=== PATIENT | female | born 1980 | race Caucasian/White ===

== ENCOUNTER 2018-07-13 14:09 | Outpatient (REF) | payer BC, SELFPAY ==
[2018-07-13 21:25] LABS: Abs Immature Grans 0.02 k/cumm (0.0-0.09); Absolute Basophil Count 0.02 k/cumm (0.0-0.2); Absolute Eosinophil Count 0.05 k/cumm (0.0-0.7); Absolute Lymphocyte Count 0.66 k/cumm (1.2-3.4); Basophils % 0.5; Eosinophils % 1.3; HCT 42.6 % (36.0-46.0); HGB 13.7 g/dL (12.0-15.5); Immature Grans % 0.5; Lymphocytes % 17.6; Mean Corp. HGB Concentration 32.2 g/dL (32.0-36.0); Mean Corpuscular Hemoglobin 28.8 pg (27.0-33.0); Mean Corpuscular Volume 89.5 fL (80-95); Mean Platelet Volume 11.5 fL (8.0-11.0); Monocytes % 5.3; Neutrophils % 74.8; Platelet Count 246 x1000/uL (130-400); RBC 4.76 m/cumm (4.00-5.20); RBC Distribution Width 13.1 % (11.7-14.6); White Blood Cell Count 3.75 k/cumm (4.4-10.8)
[2018-07-13 21:26] LABS: Absolute Neutrophil Count 2.81 k/cumm (1.2-6.7)
[2018-07-13 21:39] LABS: Iron 123 ug/dL (50-175); Total Iron Binding Capacity 339 ug/dL (250-450); Transferrin Sat 36 % (15-50)
[2018-07-13 21:44] LABS: Anion Gap 6.9 mmol/L (3-11); BUN 10 mg/dL (7-18); CO2 28.1 mmol/L (21.0-32.0); CREATININE 0.86 mg/dL (0.55-1.02); Calcium 8.7 mg/dL (8.5-10.1); Chloride 105 mmol/L (98-107); Cholesterol 237 mg/dL (50-200); Ferritin 41 ng/mL (8-388); Glucose 78 mg/dL (70-100); HDL Cholesterol 53 mg/dL (40-60); LDL CHOLESTEROL 171 mg/dL (<100); Sodium 140 mmol/L (136-145); TSH (W/Ref FT4) 1.17 uIU/mL (0.358-3.74); Triglyceride 90 mg/dL (30-150)
== END 2018-07-13 14:29 ==
LOC: NCHCN 14:09
PROVIDERS: PCP Nurse Practitioner Family; Visit Provider Nurse Practitioner Family
DX: R21 Rash and other nonspecific skin eruption (principal); M53.3 Sacrococcygeal disorders, not elsewhere classified; R53.83 Other fatigue; H53.9 Unspecified visual disturbance; R51 Headache; I86.8 Varicose veins of other specified sites; Z00.00 Encounter for general adult medical examination without abnormal findings; J30.9 Allergic rhinitis, unspecified
CPT/HCPCS: 80048; 80061; 83721; 82728; 83540; 83550; 84443; 85025

== ENCOUNTER 2019-08-03 11:24 | Outpatient (REF) | payer BC, SELFPAY ==
--- NOTE | 2019-08-03 10:00 | PAPFT_PTH ---
PAT[facility]: [facility]errero [id number]GE/SX: 39/F ROOM: RE08/03/[address]: Ivonne Baca : 1980 BED: DIS: 08/03/2019 SPEC #: [id number] RECD: 08/04/19 12:59 STATUS: ARYA REFátima #: [id number] CHUCKIE: 08/03/19 10:[address]: Ivonne Baca DEPT: [facility] Cytology RECD BY: Hermelinda Interiano Tissues: 1 - CX/ENDOCX FOR PAP SMEARS Procedures: PAP THIN PREP/UVM Screening HPV DNA PROBE Comments: [id number]
== END 2019-08-03 11:44 ==
LOC: NCHCN 11:24
PROVIDERS: PCP Nurse Practitioner Family; Visit Provider Nurse Practitioner Family
DX: Z00.00 Encounter for general adult medical examination without abnormal findings (principal); Z12.4 Encounter for screening for malignant neoplasm of cervix; Z01.419 Encounter for gynecological examination (general) (routine) without abnormal findings; Z11.51 Encounter for screening for human papillomavirus (HPV)
CPT/HCPCS: 88142; 87624

== ENCOUNTER 2019-11-16 12:10 | Outpatient (REF) | payer BC, SELFPAY ==
[2019-11-16 15:33] LABS: HCG Quant, Pregnancy 5705 mIU/mL (1-3)
== END 2019-11-16 12:30 ==
LOC: NCHCN 12:10
PROVIDERS: PCP Nurse Practitioner Family; Visit Provider Nurse Practitioner Family
DX: Z33.1 Pregnant state, incidental (principal)
CPT/HCPCS: 84702

== ENCOUNTER 2019-12-10 19:39 | Outpatient (REF) | payer BC, SELFPAY | END 2019-12-10 19:59 | LOC: NCHCN 19:39 | PROVIDERS: PCP Nurse Practitioner Family; Visit Provider Family Medicine | DX: R30.0 Dysuria (principal) | CPT/HCPCS: 87086 ==

== ENCOUNTER 2020-10-12 18:40 | Outpatient (REF) | payer BC, SELFPAY | END 2020-10-12 19:00 | LOC: NCHCN 18:40 | PROVIDERS: PCP Nurse Practitioner Family; Visit Provider Family Medicine | DX: R30.0 Dysuria (principal) | CPT/HCPCS: 87086 ==

== ENCOUNTER 2021-08-14 09:42 | Outpatient (REF) | payer BC, SELFPAY ==
--- NOTE | 2021-08-14 08:40 | PAPFT_PTH ---
PATIENT: Soha Guerrero LOC: [facility]#:[id number] AGE/SX: 41/F ROOM: RE08/14/[address]: Ivonne Baca : 1980 BED: DIS: 08/14/2021 SPEC #: [id number] RECD: 08/14/21 18:28 STATUS: ARYA REFátima #: [id number] CHUCKIE: 08/14/21 08:[address]: Ivonne Baca DEPT: [facility] Cytology RECD BY: Hermelinda Interiano Tissues: 1 - CX/ENDOCX FOR PAP SMEARS Procedures: PAP THIN PREP/UVM Screening HPV DNA PROBE Comments:
[2021-08-14 14:37] LABS: Abs Immature Grans 0.02 10^3/uL (0.0-0.06); Absolute Basophil Count 0.04 10^3/uL (0.0-0.2); Absolute Eosinophil Count 0.06 10^3/uL (0.0-0.7); Absolute Lymphocyte Count 0.73 10^3/uL (1.2-3.4); Absolute Monocyte Count 0.26 10^3/uL (0.1-0.8); Absolute Neutrophil Count 2.95 10^3/uL (1.2-6.7); Eosinophils % 1.5; HCT 45.8 % (36.0-46.0); HGB 14.5 g/dL (11.2-15.7); Immature Grans % 0.5; MCH 28.3 pg (27.0-33.0); MCHC 31.7 % (32.0-36.0); MCV 89.5 fL (80-95); MPV 12.1 fL (8.0-11.0); Monocytes % 6.4; Neutrophils % 72.6; Nucleated RBC 0 %; Platelet Count 247 10^3/uL (130-400); RBC 5.12 10^6/uL (3.93-5.22); RDW 12.5 % (11.7-14.6); RDW-SD 41.2 fL; WBC 4.06 10^3/uL (4.4-10.8)
[2021-08-15 00:10] LABS: Calculated LDL 161 mg/dL (<100); Cholesterol 228 mg/dL (<200); Ferritin 82 ng/mL (8-252); HDL Cholesterol 53 mg/dL (40-60); TSH (W/Ref FT4) 0.89 uIU/mL (0.36-3.74); Triglyceride 73 mg/dL (<150)
[2021-08-15 00:11] LABS: Iron 104 ug/dL (50-170); Total Iron Binding Capacity 297 ug/dL (250-450); Transferrin Sat 35 % (15-50)
[2021-08-15 15:59] LABS: Beta-HCG, Quant, Tumor Marker <0.6 IU/L
[2021-08-16 04:09] LABS: Vitamin D 25 Total 37.3 ng/mL (30-100)
== END 2021-08-14 09:43 | disposition home or self-care (01) ==
LOC: NCHCN 09:42
PROVIDERS: PCP Nurse Practitioner Family; Visit Provider Nurse Practitioner Family
DX: N92.6 Irregular menstruation, unspecified (principal); R53.83 Other fatigue; E55.9 Vitamin D deficiency, unspecified; D72.818 Other decreased white blood cell count; E78.5 Hyperlipidemia, unspecified; Z00.00 Encounter for general adult medical examination without abnormal findings; Z12.4 Encounter for screening for malignant neoplasm of cervix; Z11.51 Encounter for screening for human papillomavirus (HPV)
CPT/HCPCS: 80061; 82306; 88142; 82728; 83540; 83550; 84443; 84702; 85025; 87624

== ENCOUNTER 2021-09-19 14:14 | Outpatient (REF) | payer BC, SELFPAY ==
[2021-09-19 14:46] LABS: Bilirubin Negative (Negative); Blood Trace-intact (Negative); Clarity Clear (Clear); Glucose Negative (Negative); Ketones Negative (Negative); Leukocyte Esterase Negative (Negative); Nitrite Negative (Negative); Urobilinogen 0.2 EU/dL (Up TO 0.2)
[2021-09-19 15:54] LABS: Bacteria Negative HPF (Negative); C & S Indicated? No; Crystals Negative HPF (Negative); Epithelial Cells Rare HPF (Negative); Mucus Negative (Negative); RBC 0-2 HPF (0-2); WBC Negative HPF (0-5)
== END 2021-09-19 14:15 | disposition home or self-care (01) ==
LOC: NCHCN 14:14
PROVIDERS: PCP Nurse Practitioner Family; Visit Provider Family Medicine
DX: N39.0 Urinary tract infection, site not specified
CPT/HCPCS: 81003; 81015

== ENCOUNTER 2023-02-18 12:08 | Outpatient (REF) | payer BC, SELFPAY ==
[2023-02-18 15:26] LABS: Abs Immature Grans 0.02 10^3/uL (0.0-0.06); Absolute Basophil Count 0.04 10^3/uL (0.0-0.2); Absolute Eosinophil Count 0.04 10^3/uL (0.0-0.7); Absolute Lymphocyte Count 0.86 10^3/uL (1.2-3.4); Absolute Monocyte Count 0.17 10^3/uL (0.1-0.8); Absolute Neutrophil Count 2.99 10^3/uL (1.2-6.7); HCT 44.2 % (36.0-46.0); HGB 14.1 g/dL (11.2-15.7); Immature Grans % 0.5; Lymphocytes % 20.9; MCH 28.7 pg (27.0-33.0); MCHC 31.9 % (32.0-36.0); MCV 90 fL (80-95); MPV 11.7 fL (8.0-11.0); Monocytes % 4.1; Neutrophils % 72.5; Platelet Count 233 10^3/uL (130-400); RBC 4.92 10^6/uL (3.93-5.22); RDW 12.8 % (11.7-14.6); RDW-SD 42.2 fL; WBC 4.12 10^3/uL (4.4-10.8)
[2023-02-18 16:09] LABS: ALT 15 U/L (14-59); AST 15 U/L (15-37); Albumin 4.3 g/dL (3.4-5.0); Alkaline Phosphatase 70 U/L (46-116); BUN 9 mg/dL (7-18); Bilirubin, Total 0.4 mg/dL (0.2-1.0); CREATININE 0.8 mg/dL (0.55-1.02); Calcium 8.9 mg/dL (8.5-10.1); Chloride 104 mmol/L (98-107); Glucose 82 mg/dL (74-106); Potassium 4.4 mmol/L (3.5-5.1); Sodium 142 mmol/L (136-145); TSH (W/Ref FT4) 1.72 uIU/mL (0.36-3.74); Total Protein 7.6 g/dL (6.4-8.2)
== END 2023-02-18 12:09 | disposition home or self-care (01) ==
LOC: NCHCN 12:08
PROVIDERS: PCP Nurse Practitioner Family; Visit Provider Family Medicine
DX: F32.89 Other specified depressive episodes (principal); M53.3 Sacrococcygeal disorders, not elsewhere classified; R53.83 Other fatigue
CPT/HCPCS: 80053; 84443; 85025

== ENCOUNTER 2023-11-12 12:47 | Outpatient (REF) | payer BC, SELFPAY ==
--- OUTSIDE RECORDS SUMMARY | 2023-11-12 12:50 | XMS_ITS | Continuity of Care Document ---
Author Name Unknown Organization [facility] Address [address] [place] [id number] Care Team Providers Care Help Desk Operator Name Role Phone BECKY STONE APRN Primary Care Physician Encounter [facility] NBR [id number] Date(s): 02/25/23 - 02/25/[address] [phone]- [place] Discharge Disposition: Home or Self Care Attending Physician: ETIENNE TAYLOR Admitting Physician: ETIENNE TAYLOR Referring Physician: ETIENNE TAYLOR Results Radiology Reports * Exam Date Time Procedure Performing Provider Status 02/25/23 3:54 PM XR Sacrum/Coccyx 2+ Views Hemant Toribio ge; Auth (Verified) Notes: (XR Sacrum/Coccyx 2+ Views) Reason For Exam: COCCYX PAIN XR Sacrum/Coccyx 2+ Views EXAM DESCRIPTION: XR Sacrum/Coccyx 2+ Views 02/25/2023 INDICATION: COCCYX PAIN TECHNIQUE: AP and lateral views of the sacrum and coccyx, three views COMPARISON: AP pelvis examination from 12/28/2020 IMPRESSION: No acute fracture or subluxation. SI joints appear symmetric and pubic symphysis appears intact No focal lytic or sclerotic lesion IUD overlying the mid pelvis. JOB #: [id number] Final Signed by: Papo Cardona MD Signed (Electronic Signature): 02/25/2023 4:04 pm XR Sacrum and Coccyx GE 2 Views * Papo Cardona MD: VERIFY, VERIFY Event Display: Report EXAM DESCRIPTION: XR Sacrum/Coccyx 2+ Views 02/25/2023 INDICATION: COCCYX PAIN TECHNIQUE: AP and lateral views of the sacrum and coccyx, three views COMPARISON: AP pelvis examination from 12/28/2020 IMPRESSION: No acute fracture or subluxation. SI joints appear symmetric and pubic symphysis appears intact No focal lytic or sclerotic lesion IUD overlying the mid pelvis. JOB #: [id number] Final Signed by: Papo Cardona MD Signed (Electronic Signature): 02/25/2023 4:04 pm Patient Care team information Care Team Personnel Name: BECKY STONE APRN Position: No Access Member Role: Primary Care Physician Address: Address: [address] [place] [phone]- Care Team Related Persons Name: KIMBERLY SAN
[2023-11-12 15:57] LABS: Hemoglobin A1C 5.2 % (<5.7)
== END 2023-11-12 12:48 | disposition home or self-care (01) ==
LOC: NCHCN 12:47
PROVIDERS: PCP Nurse Practitioner Family; Visit Provider Nurse Practitioner Family
DX: Z00.00 Encounter for general adult medical examination without abnormal findings (principal)
CPT/HCPCS: 83036

== ENCOUNTER 2024-03-18 07:49 | Emergency (ER) | payer BC, SELFPAY ==
--- NOTE | 2024-03-18 | DI.CT_ITS ---
Exam(s) CT ABDOMEN PELVIS W CLINICAL HISTORY: TECHNIQUE: Imaging Protocol: Axial computed tomography images with coronal and sagittal reformatted images were created and reviewed. CONTRAST MATERIAL: Intravenous: Omnipaque 350 Contrast volume:100 mL Oral: No COMPARISON: No exams were available for comparison FINDINGS: ABDOMEN: Lung Bases: Normal where visualized. Liver: Normal density. No measurable mass. Portal, Superior Mesenteric, and Splenic Veins: Unremarkable. Gallbladder and Biliary Tract: No radiodense calculus or dilation. Pancreas: Normal density, no abnormal calcifications or inflammatory process. Spleen: Normal. Adrenals: No masses seen. Kidneys: Normal size, contour and axis. There is a 3 mm right UVJ stone causing moderate right hydron ephrosis. There are 2 simple right renal cysts. No follow-up is recommended. Abdominal Aorta: Abdominal portion non-dilated. Bowel: No obstruction or bowel wall thickening. No evidence of appendicitis. Peritoneal Cavity: No ascites, collection or mesenteric inflammatory response. No free air. Lymph Nodes: Within normal limits. Bones: Within normal limits for the patient's age. Soft Tissues: Unremarkable. PELVIS: Bladder: Symmetric distention, no gross wall thickening. Reproductive Organs: Unremarkable as visualized. Lymph Nodes: Within normal limits. Bones: Within normal limits for the patient's age. IMPRESSION: 1. 3 mm right UVJ stone causing moderate right hydronephrosis. 2. Findings were discussed with Yolanda Samuel at 9:53 a.m. on 03/18/2024. RADIATION DOSE DELIVERED: Total DLP DATA REPOSITORY: All CT scans at this facility are submitted to the National Radiology Data Registry (NRDR) Dose Index Registry (DIR) with the [employer] (ACR). RADIATION OPTIMIZATION: All CT scans at this facility use at least one of these dose optimization te chniques: automated exposure control; mA and/or kV adjustment per patient size (includes targeted exa ms where dose is matched to clinical indication); or iterative reconstruction.
--- NOTE | 2024-03-18 | DI.US_ITS ---
Exam(s) US PELVIS CLINICAL HISTORY: . TECHNIQUE: Transabdominal and transvaginal pelvic ultrasound was performed using standard protocol. COMPARISON: No exams were available for comparison FINDINGS: The urinary bladder was not prepped for this examination. The uterus and ovaries cannot be visualize d on this examination. There is limited visualization of the pelvic structures. Within the limits o f the examination, no suspicious cystic or solid mass is seen. IMPRESSION: 1. Limited examination was performed. 2. Within the limits of the examination, no suspicious cystic or solid mass is seen. DATA REPOSITORY:
[2024-03-18 08:05] VITALS: BP 160/90; PULSE 89; RESP 14; TEMP 36.4; O2SAT 97
[2024-03-18] MEDS: Ondansetron 4 MG/2 ML VIAL (08:44)
[2024-03-18] MEDS: MORPHine 4 MG/ML SYR (08:44)
[2024-03-18] MEDS: Ketorolac 30 MG/ML VIAL (09:59)
[2024-03-18] MEDS: Tamsulosin 0.4 MG CAPCR PO (10:40)
[2024-03-18] MEDS: Ondansetron O.D.T. 4 MG TABEF, 3 TABS/BTL 12 MG (10:40)
[2024-03-18 10:59] VITALS: BP 145/86; BP 160/90; PULSE 89; RESP 13; RESP 14; TEMP 36.4; O2SAT 97; O2SAT 99
[2024-03-18] MEDS: Normal Saline - Diluent 50 ML VIAL IJ (11:12)
[2024-03-18] MEDS: Omnipaque 350 MG/ML 500 ML BTL-Imaging package IJ (11:13)
[2024-03-18 12:37] LABS: Bilirubin Negative (Negative); Blood Moderate (Negative); Clarity Clear (Clear); Glucose Negative (Negative); Ketones >=160 mg/dL (Negative); Leukocyte Esterase Negative (Negative); Nitrite Negative (Negative); Urobilinogen 0.2 mg/dL (Up to 0.2)
[2024-03-18 12:39] LABS: Bacteria Rare HPF (Negative); C & S Indicated? No/Sq. Contamination; Casts Negative LPF (Negative); Crystals Negative HPF (Negative); Epithelial Cells Many HPF (Negative); Mucus Trace (Negative); RBC 20-50 HPF (0-2); WBC 0-2 HPF (0-5)
[2024-03-18 13:01] LABS: ALT 12 U/L (14-59); AST 12 U/L (15-37); Albumin 4.5 g/dL (3.4-5.0); Alkaline Phosphatase 44 U/L (46-116); Anion Gap 18.9 mmol/L (3-11); BUN 9 mg/dL (7-18); Bilirubin, Total 0.8 mg/dL (0.2-1.0); CO2 17.1 mmol/L (21.0-32.0); CREATININE 1.1 mg/dL (0.55-1.02); Calcium 9.1 mg/dL (8.5-10.1); Chloride 103 mmol/L (98-107); Estimated GFR 63.54 (mL/min/1.73m2); Glucose 118 mg/dL (74-106); Lipase 27 U/L (16-77); Potassium 3.8 mmol/L (3.5-5.1); Sodium 139 mmol/L (136-145); Total Protein 7.5 g/dL (6.4-8.2)
[2024-03-18 13:03] LABS: HCG Qual (Serum) Negative
[2024-03-18 13:04] LABS: Absolute Basophil Count 0.05 10^3/uL (0.0-0.2); Absolute Eosinophil Count 0.15 10^3/uL (0.0-0.7); Absolute Lymphocyte Count 1.35 10^3/uL (1.2-3.4); Absolute Monocyte Count 0.24 10^3/uL (0.1-0.8); Absolute Neutrophil Count 3.09 10^3/uL (1.2-6.7); Eosinophils % 3.1 %; HCT 42.4 % (36.0-46.0); HGB 13.8 g/dL (11.2-15.7); Immature Grans % 0.4 %; Lymphocytes % 27.6 %; MCH 28.9 pg (27.0-33.0); MCHC 32.5 % (32.0-36.0); MCV 89 fL (80-95); MPV 11.5 fL (8.0-11.0); Monocytes % 4.9 %; Platelet Count 231 10^3/uL (130-400); RBC 4.78 10^6/uL (3.93-5.22); RDW-SD 39.6 fL
[2024-03-18 13:05] LABS: Abs Immature Grans 0.02 10^3/uL (0.0-0.06)
== END 2024-03-18 10:59 | disposition home or self-care (01) ==
LOC: ER 11:12
PROVIDERS: Emergency Provider Registered Nurse Emergency; PCP Nurse Practitioner Family
DX: N13.2 Hydronephrosis with renal and ureteral calculous obstruction (principal); R11.10 Vomiting, unspecified
CPT/HCPCS: 36415; 80053; 83690; 96374; 96375; 99285; 74177; 76856; 81003; 81015; 84703; 85025; 99284; J1885; J2270; J2405

== ENCOUNTER 2024-04-06 09:37 | Outpatient (REF) | payer BC, SELFPAY ==
[2024-04-12 16:29] LABS: Source: Passed Stone
== END 2024-04-06 09:38 | disposition home or self-care (01) ==
LOC: LBN 09:37
PROVIDERS: PCP Nurse Practitioner Family; Visit Provider Nurse Practitioner Gerontology
DX: N20.0 Calculus of kidney (principal)
CPT/HCPCS: 82365

== ENCOUNTER 2024-08-24 15:13 | Outpatient (REF) | payer BC, SELFPAY ==
[2024-08-24 14:27] LABS: Abs Immature Grans 0.01 10^3/uL (0.0-0.06); Absolute Basophil Count 0.04 10^3/uL (0.0-0.2); Absolute Eosinophil Count 0.02 10^3/uL (0.0-0.7); Absolute Lymphocyte Count 0.81 10^3/uL (1.2-3.4); Absolute Monocyte Count 0.25 10^3/uL (0.1-0.8); Absolute Neutrophil Count 4.18 10^3/uL (1.2-6.7); Basophils % 0.8 %; Eosinophils % 0.4 %; HCT 42.3 % (36.0-46.0); HGB 13.7 g/dL (11.2-15.7); Immature Grans % 0.2 %; Lymphocytes % 15.3 %; MCH 29.1 pg (27.0-33.0); MCHC 32.4 % (32.0-36.0); MCV 90 fL (80-95); MPV 12.4 fL (8.0-11.0); Monocytes % 4.7 %; Neutrophils % 78.6 %; Platelet Count 223 10^3/uL (130-400); RBC 4.71 10^6/uL (3.93-5.22); RDW 12.7 % (11.7-14.6); RDW-SD 42.4 fL; WBC 5.31 10^3/uL (4.4-10.8)
[2024-08-24 15:26] LABS: ALT 9 U/L (14-59); AST 9 U/L (15-37); Albumin 4.3 g/dL (3.4-5.0); Alkaline Phosphatase 44 U/L (46-116); Anion Gap 10.5 mmol/L (3-11); BUN 9 mg/dL (7-18); Bilirubin, Total 0.68 mg/dL (0.2-1.0); CO2 24.5 mmol/L (21.0-32.0); CREATININE 0.9 mg/dL (0.55-1.02); Calcium 9.3 mg/dL (8.5-10.1); Calculated LDL 137 mg/dL (<100); Chloride 108 mmol/L (98-107); Cholesterol 207 mg/dL (<200); Estimated GFR 80.34 (mL/min/1.73m2); Glucose 74 mg/dL (74-106); HDL Cholesterol 57 mg/dL (40-60); Potassium 4.6 mmol/L (3.5-5.1); Sodium 143 mmol/L (136-145); Total Protein 7.3 g/dL (6.4-8.2); Triglyceride 68 mg/dL (<150); Vitamin D 25 Total 34.1 ng/mL (30-100)
== END 2024-08-24 15:14 | disposition home or self-care (01) ==
LOC: NCHCN 15:13
PROVIDERS: PCP Nurse Practitioner Family; Visit Provider Nurse Practitioner Family
DX: E55.9 Vitamin D deficiency, unspecified (principal); Z00.00 Encounter for general adult medical examination without abnormal findings; E78.5 Hyperlipidemia, unspecified; D72.819 Decreased white blood cell count, unspecified
CPT/HCPCS: 80053; 80061; 82306; 85025

== ENCOUNTER 2025-08-24 15:35 | Outpatient (REF) | payer BC, SELFPAY ==
[2025-08-24 14:37] LABS: Abs Immature Grans 0.02 10^3/uL (0.0-0.06); HCT 43.3 % (36.0-46.0); HGB 14.1 g/dL (11.2-15.7); Immature Grans % 0.4 %; MCH 29.1 pg (27.0-33.0); MCHC 32.6 % (32.0-36.0); MCV 90 fL (80-95); MPV 11.2 fL (8.0-11.0); Platelet Count 211 10^3/uL (130-400); RBC 4.84 10^6/uL (3.93-5.22); RDW 12.1 % (11.7-14.6); RDW-SD 40.2 fL; WBC 5.10 10^3/uL (4.4-10.8)
[2025-08-24 15:08] LABS: TSH (W/Ref FT4) 0.98 uIU/mL (0.55-4.78)
== END 2025-08-24 15:36 | disposition home or self-care (01) ==
LOC: NCHCN 15:35
PROVIDERS: PCP Nurse Practitioner Family; Visit Provider Nurse Practitioner Family
DX: Z00.00 Encounter for general adult medical examination without abnormal findings (principal); D72.819 Decreased white blood cell count, unspecified
CPT/HCPCS: 84443; 85025